=== PATIENT | female | born 1930 | race Asian ===

== ENCOUNTER → 2016-07-30 | Outpatient (CLI) | payer OTHER | END | disposition home or self-care (01) | LOC: RADPV 08:26 | PROVIDERS: ATTEND Internal Medicine | DX: M47.812 Spondylosis without myelopathy or radiculopathy, cervical region (principal) | CPT/HCPCS: 72040 ==

== ENCOUNTER → 2017-07-08 | Outpatient (CLI) | payer MEDICARE, MEDICAID ==
[~2017-07-08] VITALS: Ht 147.3 cm; Wt 51.0 kg
[~2017-07-08] MED LIST: ATOR20TA86 PO; BACL10TA PO; CHOL100034 PO; CLOP75TA32 PO; FURO40 PO; LORA0.5T2 PO; MECL-111 PO; METO-408 PO; PROME5L PO; QUET25TA34 PO; SITA50 PO; SYMB8060 IH; UMEC62.5 PO
[2017-07-08 12:33] VITALS: BP 121/53
== END | disposition home or self-care (01) ==
LOC: SRCNTR 12:24
PROVIDERS: ATTEND Internal Medicine Critical Care Medicine
DX: I13.0 Hypertensive heart and chronic kidney disease with heart failure and stage 1 through stage 4 chronic kidney disease, or unspecified chronic kidney disease (principal); E11.22 Type 2 diabetes mellitus with diabetic chronic kidney disease; N18.3 Chronic kidney disease, stage 3 (moderate); I50.9 Heart failure, unspecified; F03.90 Unspecified dementia, unspecified severity, without behavioral disturbance, psychotic disturbance, mood disturbance, and anxiety; E87.1 Hypo-osmolality and hyponatremia; I25.10 Atherosclerotic heart disease of native coronary artery without angina pectoris; J18.9 Pneumonia, unspecified organism; Z95.5 Presence of coronary angioplasty implant and graft
CPT/HCPCS: G0463

== ENCOUNTER → 2017-10-12 | Outpatient (CLI) | payer MEDICARE, MEDICAID ==
[~2017-10-12] VITALS: Ht 147.3 cm; Wt 50.0 kg
[~2017-10-12] MED LIST changes: +HYDR-2924 PO; +MONT10TA21 PO; +NIFE90TA45 PO; +PROM6.2522 PO; -PROME5L PO
[2017-10-12 12:35] VITALS: BP 128/51
== END | disposition home or self-care (01) ==
LOC: SRCNTR 12:17
PROVIDERS: ATTEND Internal Medicine Critical Care Medicine
DX: J18.9 Pneumonia, unspecified organism (principal); I13.0 Hypertensive heart and chronic kidney disease with heart failure and stage 1 through stage 4 chronic kidney disease, or unspecified chronic kidney disease; N18.3 Chronic kidney disease, stage 3 (moderate); I50.1 Left ventricular failure, unspecified; R42 Dizziness and giddiness; F03.90 Unspecified dementia, unspecified severity, without behavioral disturbance, psychotic disturbance, mood disturbance, and anxiety; E87.1 Hypo-osmolality and hyponatremia
CPT/HCPCS: G0463

== ENCOUNTER → 2017-11-07 | Outpatient (CLI) | payer MEDICARE, OTHER ==
[~2017-11-07] MED LIST changes: -BACL10TA PO; -METO-408 PO; -PROM6.2522 PO; -QUET25TA34 PO; -SITA50 PO; -SYMB8060 IH; -UMEC62.5 PO
== END | disposition home or self-care (01) ==
LOC: RADPV 10:38
PROVIDERS: ATTEND Internal Medicine
DX: R76.11 Nonspecific reaction to tuberculin skin test without active tuberculosis (principal); I70.0 Atherosclerosis of aorta

== ENCOUNTER → 2018-02-07 | Outpatient (CLI) | payer MEDICARE, OTHER ==
[~2018-02-07] VITALS: Ht 147.3 cm; Wt 50.0 kg
[2018-02-07 14:38] VITALS: BP 150/66
== END | disposition home or self-care (01) ==
LOC: SRCNTR 14:00
PROVIDERS: ATTEND Internal Medicine Critical Care Medicine
DX: R06.2 Wheezing (principal); R05 Cough; R42 Dizziness and giddiness; R51 Headache; I13.0 Hypertensive heart and chronic kidney disease with heart failure and stage 1 through stage 4 chronic kidney disease, or unspecified chronic kidney disease; N18.3 Chronic kidney disease, stage 3 (moderate); I50.9 Heart failure, unspecified; F03.90 Unspecified dementia, unspecified severity, without behavioral disturbance, psychotic disturbance, mood disturbance, and anxiety; E87.1 Hypo-osmolality and hyponatremia
CPT/HCPCS: G0463

== ENCOUNTER → 2018-02-16 | Outpatient (CLI) | payer MEDICARE, OTHER | END | disposition home or self-care (01) | LOC: RADMN 13:09 | PROVIDERS: ATTEND Internal Medicine Critical Care Medicine | DX: I67.82 Cerebral ischemia (principal); I67.2 Cerebral atherosclerosis; R90.82 White matter disease, unspecified | CPT/HCPCS: 70450 ==

== ENCOUNTER → 2018-05-24 | Outpatient (CLI) | payer MEDICARE, OTHER ==
[~2018-05-24] VITALS: Ht 147.3 cm; Wt 50.5 kg
[~2018-05-24] MED LIST changes: +CLON-570 PO
[2018-05-24 13:23] VITALS: BP 137/65
== END | disposition home or self-care (01) ==
LOC: SRCNTR 13:17
PROVIDERS: ATTEND Internal Medicine Critical Care Medicine
DX: I10 Essential (primary) hypertension (principal); I25.10 Atherosclerotic heart disease of native coronary artery without angina pectoris
CPT/HCPCS: G0463